=== PATIENT | male | born 2000 | race American Indian/Alaskan Native ===

== ENCOUNTER 2020-08-25 11:17 | Emergency (ER) | payer SELFPAY ==
[2020-08-25 12:12] VITALS: BP 113/70
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
== END 2020-08-25 12:39 | disposition home or self-care (01) ==
LOC: ED 11:17
DX: S51.812A Laceration without foreign body of left forearm, initial encounter (principal); Z79.899 Other long term (current) drug therapy; X58.XXXD Exposure to other specified factors, subsequent encounter
CPT/HCPCS: 99281